=== PATIENT | female | born 1965 | race Two or more races ===

== ENCOUNTER → 2017-10-28 09:46 | Outpatient (CLI) | payer MEDICAID ==
[~2017-10-28 09:46] MED LIST: HYDROCODONE-APA1 TAB PO
[2017-12-29 07:01] VITALS: BMI 30.8
== END | disposition home or self-care (01) ==
LOC: D.MAMMO 09:46
DX: N64.4 Mastodynia (principal)

== ENCOUNTER → 2017-12-08 14:06 | Outpatient (CLI) | payer MEDICAID ==
[2017-12-29 07:01] VITALS: BMI 30.8
== END | disposition home or self-care (01) ==
LOC: D.US 14:00
DX: N63.13 Unspecified lump in the right breast, lower outer quadrant (principal)

== ENCOUNTER 2017-12-29 05:39 | Day surgery (SDC) | payer MEDICAID ==
[~2017-12-29] VITALS: Ht 157.5 cm; Wt 76.4 kg
--- NOTE | ~2017-12-29 | OP ---
PATIENT NAME: MARINA MARROQUIN MEDICAL RECORD: [id number] :[id number] LOCATION:[facility] ADMISSION DATE: SURGEON: CHASE KING MD DATE OF OPERATION: 12/29/2017 PREOPERATIVE DIAGNOSIS: Right breast cancer. POSTOPERATIVE DIAGNOSES: 1. Right breast cancer. 2. Metastatic breast cancer to the right axilla. PROCEDURE: 1. Needle loc lumpectomy of the right inferior breast. 2. Right axillary lymph node dissection. SURGEON: Chase King MD REPORT OF PROCEDURE: Preoperatively, the patient had an ultrasound-guided needle localization and lymphoscintigraphy. The lymphoscintigraphy was noted to have minimal uptake in the right axilla. At the time of the operation, we approached the breast first. The needle was projecting into a mass that was palpable on the inferior aspect and middle portion of the right breast at about the 6 o'clock position. A transverse incision was made in the inframammary crease and electrocautery was used to dissect through the subcutaneous tissues. We eviscerated the wire into our wound and continued our dissection around the palpable mass, which extended all the way down to the fascial layer of the pectoralis muscle. We completely excised this mass including the wire and sent it off for permanent specimen. Upon report, they said that the clip was not present in the specimen, but I was fully confident that the mass was completely excised. We then inspected the area and assured there was no sign of any active bleeding and then packed the wound with a lap pad. We then approached the right axilla. I inspected the area with Neoprobe and was getting some radiotracer uptake, but there was never really a high reading. A transverse incision was made on the inferior aspect of the axilla. Electrocautery was used to dissect through the subcutaneous tissue until we entered the axillary space. Immediately inside the axilla, the patient was noted to have matted up very firm lymph nodes present. At this point, I elected just to perform an axillary lymph node dissection. We found our borders of the latissimus dorsi posteriorly, the chest wall medially, the posterior aspect of the lateral pectoralis anteriorly and the axillary vessels superiorly. We took out all the tissue in this region incorporating all of the palpably enlarged lymph nodes that were present. This extended all the way up into zone 2. At the conclusion of the case, I was looking for the patient's long thoracic and thoracodorsal nerves, and I was never able to find them, but there was still some fatty tissue present posteriorly without any lymphatic tissue present within it. I was hopeful that the nervous tissue was just present in there. We irrigated out the wound thoroughly with normal saline and followed by sterile water. There was no active bleeding in the axilla. We then inspected the chest wound one last time and irrigated out with sterile water. There was no sign of any bleeding anywhere in the wounds. We then reapproximated the subcutaneous tissues with interrupted 3-0 Vicryl. A 15-Swiss Maurisio drain had been placed in the right axilla and sutured in with 3-0 nylon prior to this. We then infused a total of 10 mL of 0.25% Marcaine with epinephrine to the surrounding tissues and closed the skin with subcutaneous running 5-0 Monocryl. OPERATIVE REPORT [id number] MARINA MARROQUIN COMPLICATIONS: None. CONDITION: Stable. ANESTHESIA: General endotracheal and local. BLOOD LOSS: 50 mL. TRANSINT:[id number] Voice Confirmation ID: [id number] DOCUMENT ID: [id number] CHASE KING MD at 1041 CC: [id number] DICTATION DATE: 12/29/17 1533 [employer] DEVELOPER: 12/29/17 1559 [facility] 12/29/17 [id number] [place] [address]
[2017-12-29 06:07] LABS: BASOPHILS 0.2 % (0-2); EOSINOPHILS 3.1 % (0-7); HEMATOCRIT 38.4 % (36.0-48.0); HEMOGLOBIN 12.8 g/dL (12-16); IMMATURE GRANULOCYTES 0.3 % (0-5); LYMPHOCYTES 31.3 % (15-50); MCH 27.6 pg (26.0-34.0); MCHC 33.3 g/dL (31.0-37.0); MCV 82.8 fL (80.0-100.0); MEAN PLATELET VOLUME 9.9 fL (7.4-10.4); MONOCYTES 7.2 % (2-11); NEUTROPHILS 57.9 % (40-80); PLATELET COUNT 235 10x3/uL (130-400); RBC 4.64 10x6/uL (4.00-5.40); WBC 10.2 10x3/uL (4.8-10.8)
[2017-12-29 06:14] LABS: ANION GAP 13.6 mmol/L (8-16); CALCIUM 8.3 mg/dL (8.5-10.1); CARBON DIOXIDE 24.4 mmol/L (21.0-32.0)
[2017-12-29 06:17] LABS: APTT 27.4 SECONDS (22.8-39.4); INR 1.15 (0.85-1.17); PROTIME 14.3 SECONDS (11.6-15.0)
[2017-12-29 06:56] LABS: HCG URINE NEGATIVE (NEGATIVE)
[2017-12-29 07:01] VITALS: BP 133/65; Ht 157.5 cm; Wt 76.4 kg
[2017-12-29] MEDS ORDERED: HYDROCODONE-APA1 TAB PO (15:23)
== END 2017-12-29 19:50 | disposition home or self-care (01) ==
LOC: D.PAN 05:39 → D.NM 07:30 → D.PAN 19:50
PROVIDERS: Anesthesiology; Surgery
DX: C50.111 Malignant neoplasm of central portion of right female breast (principal); C77.3 Secondary and unspecified malignant neoplasm of axilla and upper limb lymph nodes; Z01.812 Encounter for preprocedural laboratory examination